=== PATIENT | male | born 1965 | race Caucasian/White ===

== ENCOUNTER 2017-09-06 13:09 | Emergency (ER) | payer OTHER ==
[~2017-09-06] VITALS: Ht 180.3 cm; Wt 136.1 kg
[~2017-09-06 13:09] MED LIST: CITALOPRAM HBR20 MG PO; HYDROCHLOROTHIAZIDE PO; LEVOTHYROXINE50 MCG PO; LIPITOR40 MG PO; MOEXIPRIL PO; SIMVASTATIN40 MG PO
[2017-09-06] MEDS ORDERED: SYNTHROID50 MCG PO (13:32)
[2017-09-06] MEDS ORDERED: CHLORTHALIDONE25 MG PO (13:32)
[2017-09-06] MEDS ORDERED: NIFEDIPINE ER60 M1 PO (13:32)
== END 2017-09-06 13:38 | disposition home or self-care (01) ==
LOC: ED 13:09
DX: S61.212A Laceration without foreign body of right middle finger without damage to nail, initial encounter (principal); Z00.8 Encounter for other general examination; W22.8XXA Striking against or struck by other objects, initial encounter

== ENCOUNTER 2025-01-16 07:03 | Day surgery (SDC) | payer OTHER ==
[~2025-01-16] VITALS: Ht 180.3 cm; Wt 132.4 kg
[~2025-01-16 07:03] MED LIST changes: +CHLORTHALIDONE25 MG PO; +IBLOOD GLUCOSE TEST STRIP 1 EA TEST VI PRN; +KLOR-CON 1010 MEQ PO; +LACTATED RINGER'S 1,000 ML IV SCH; +LIDOCAINE HCL 1% 5 ML SDV INJ ONE; +MIDAZOLAM HCL 5 MG/5 ML VIAL IV PRN; +NIFEDIPINE ER60 M1 PO; +SILDENAFIL20 MG PO; +SYNTHROID50 MCG PO; +VENTOLIN HFA18 GM; +fentaNYL citrate 100 MCG/2 ML VIAL IV PRN
[2025-01-16 07:17] VITALS: BP 146/90
[2025-01-16] MEDS ORDERED: CYCLOBENZAPRINE10 MG PO (07:31)
[2025-01-16] MEDS ORDERED: fentaNYL citrate 100 MCG/2 ML VIAL ONE (07:48)
[2025-01-16] MEDS ORDERED: MIDAZOLAM HCL 5 MG/5 ML VIAL ONE (07:48)
--- NOTE | 2025-01-16 08:37 | NUR ---
01/16/25 0837 Coretta Gonzalez OXYGEN SATURATION REMAINS 95% ON 3L VIA NC. OXYGEN IS DISCONTINUED AT THIS TIME.
[2025-01-16 09:06] VITALS: BP 117/84
--- NOTE | 2025-01-16 09:36 | OR ---
[facility] [address] [place], [place] [address] Signed DATE OF OPERATION: 01/16/2025 SURGEON: Sarah Zee MD PREOPERATIVE DIAGNOSES: 1. Maternal grandmother with possible history of colon cancer per patient. 2. Screening. POSTOPERATIVE DIAGNOSES: 1. 7 mm pedunculated polyp at 15 cm in the rectum (clip x1). 2. Moderate left-sided diverticulosis. 3. Minimal to moderate internal hemorrhoids. PROCEDURE: Colonoscopy with snare polypectomy and application of clip x1. ESTIMATED BLOOD LOSS: None. INDICATIONS: Roverto is a 59-year-old obese gentleman with a body mass index of 40. He has been asked to see me for a followup screening colonoscopy. He came in 2013 at the age of 49 for his initial screening colonoscopy. This was negative. He did well with Versed and fentanyl at that time. We asked him to follow up in 10 years. He told me today that he is not sure if his maternal grandmother had colon cancer. He said she had cancer, but is not sure which type. He said he has no lower GI complaints. He continues to work as a local [employer]. In the office, I gave him a pamphlet on colonoscopy. We had reviewed the nature of the test. There is risk including, but not limited to gas bloating, crampy abdominal pain, bleeding, perforation requiring surgery, and missed diagnosis. We also reviewed the written instructions for a bowel prep line by line. It is the same bowel prep he took 10 years ago. He understands an adult person has to take him home afterwards. He had expressed understanding and wished to proceed. DESCRIPTION OF PROCEDURE: Roverto was taken into our endoscopy suite and placed in the left lateral decubitus position. He was given a total of 6 mg of Versed and 100 mcg of fentanyl. We had to watch him fairly carefully. He was awake at one point as we advance the scope and we had to slow down and increase the sedation. We had him on 6 L nasal cannula. He was breathing but still not saturating well down into the low 80s high 70s. I think for his own safety and comfort he will need monitored anesthesia care in the future. We did a Electronically Signed By: SARAH ZEE MD 01/16/25 0936 PATIENT NAME: ROVERTO MOREAU OPERATIVE REPORT DATE OF : 63 REPORT #: [id number] PHYSICIAN: SARAH ZEE MD PCP: HARDIK PATEL MD REPORT IS CONFIDENTIAL AND NOT TO BE RELEASED WITHOUT AUTHORIZATION [facility] [address] [place], [place] [address] Signed digital rectal exam and this was unremarkable. There were no external hemorrhoids. Good sphincter tone. No masses. The adult colonoscope had been introduced and advanced under direct visualization of the camera. Fortunately he is easy to pass the camera. Unfortunately on this occasion, he had multiple areas of liquid particulate stool matter, I just could not suction through the scope. We made it up to the cecum and right in the ileocecal valve. The scope was then slowly withdrawn. He has diverticula in the left and sigmoid colon. They were moderate in size, moderate in number and scattered about. At the top of the rectum at 15 cm, there was a 7 mm pedunculated polyp. We divided that with the snare and brought it through the camera. We went ahead and placed a clip to bring the mucosa back together. Upon retroflexion of the scope, he does have minimal to moderate internal hemorrhoid tissue as well. After this, the gas was suctioned out and the colonoscope removed. Overall, Roverto tolerated the procedure well. RECOMMENDATIONS: Roverto will follow up in my office in 7 to 14 days to review his results. He needs to use monitored anesthesia care in the future as described above. He needs to increase his polyethylene glycol up to a full gallon along with Dulcolax tablets and/or a ball of magnesium citrate. He should highly consider repeating this colonoscopy within 12 to 24 months with a better bowel prep to make sure he is completely free of all polyps. Sarah Zee MD ALB/MODL /[id number] cc: MD Sarah Sow MD Copies: HARDIK PATEL MD, ANDREW L MD ~ Electronically Signed By: SARAH ZEE MD 01/16/25 0936 PATIENT NAME: ROVERTO MOREAU OPERATIVE REPORT DATE OF : 63 REPORT #: [id number] PHYSICIAN: SARAH ZEE MD PCP: HARDIK PATEL MD REPORT IS CONFIDENTIAL AND NOT TO BE RELEASED WITHOUT AUTHORIZATION
--- NOTE | 2025-01-18 16:56 | PATH ---
[facility] [address] [place], [place] [address] Signed SPECIMEN(S): A RECTAL POLYP AT 15 CM SPECIMEN SOURCE: A. RECTAL POLYP AT 15 CM CLINICAL HISTORY: Family history of colon cancer FINAL PATHOLOGIC DIAGNOSIS: Rectal polyp at 15 cm: - Hyperplastic polyp. JVR:clv MICROSCOPIC EXAMINATION: Histologic sections of all submitted blocks are examined by light microscopy. These findings, together with the gross examination, support the pathologic diagnosis. GROSS DESCRIPTION: The specimen, labeled and designated "Blagg, rectal polyp at 15 cm," is received in formalin and consists of a brown-walls polypoid piece of tissue (0.8 x 0.7 x 0.5 cm). The possible resection margin is inked blue, and the tissue is trisected to reveal walls-brown soft cut surfaces. The specimen is submitted entirely in cassette (A1). VB (under the direct supervision of a pathologist) The Gross Description was prepared using a voice recognition system. The report was reviewed for accuracy; however, sound-alike word errors, addition and/or deletions may occur. If there is any question about this report, please contact Client Services. PERFORMING LABORATORY: The technical component was performed by [facility], [address] [place] [id number] (CLIA# [id number]). Professional interpretation was performed by [facility], [address] [place] [id number] (CLIA#: [id number]). Diagnostician: Darshan Camilo MD Pathologist Electronically Signed 01/18/2025 PATIENT NAME: ROVERTO MOREAU PATHOLOGY DATE OF : 63 REPORT #: [id number] PHYSICIAN: [facility] PCP: HARDIK PATEL MD REPORT IS CONFIDENTIAL AND NOT TO BE RELEASED WITHOUT AUTHORIZATION [address] [place] [address] Signed Copies: ~ PATIENT NAME: ROVERTO MOREAU PATHOLOGY DATE OF : 63 REPORT #: [id number] PHYSICIAN: [facility] PCP: HARDIK PATEL MD REPORT IS CONFIDENTIAL AND NOT TO BE RELEASED WITHOUT AUTHORIZATION
== END 2025-01-16 09:07 | disposition home or self-care (01) ==
LOC: DS 07:03
PROVIDERS: ATTEND Colon & Rectal Surgery
PROC: 0DBP8ZZ Excision of Rectum, Via Natural or Artificial Opening Endoscopic (ICD-10-PCS; principal; 2025-01-16 08:30)
DX: Z12.11 Encounter for screening for malignant neoplasm of colon (principal); K62.1 Rectal polyp; K63.5 Polyp of colon; K57.30 Diverticulosis of large intestine without perforation or abscess without bleeding; K64.8 Other hemorrhoids; E66.9 Obesity, unspecified; I10 Essential (primary) hypertension; E78.5 Hyperlipidemia, unspecified; E03.9 Hypothyroidism, unspecified; R42 Dizziness and giddiness; Z68.41 Body mass index [BMI] 40.0-44.9, adult; Z72.0 Tobacco use; Z79.899 Other long term (current) drug therapy; Z80.0 Family history of malignant neoplasm of digestive organs; Z88.5 Allergy status to narcotic agent; Z88.8 Allergy status to other drugs, medicaments and biological substances
CPT/HCPCS: 99153; G0500; J2250; J3010; J7121